=== PATIENT | female | born 1965 | race Caucasian/White ===

== ENCOUNTER 2017-03-02 19:18 | Outpatient (CLI) | END 2017-03-02 19:19 | disposition home or self-care (01) | LOC: AMBL 19:18 | PROVIDERS: ATTEND Internal Medicine Geriatric Medicine | DX: R07.9 Chest pain, unspecified (principal) ==

== ENCOUNTER 2017-03-17 03:40 | Outpatient (CLI) | END 2017-03-17 03:41 | disposition home or self-care (01) | LOC: AMBL 03:40 | PROVIDERS: ATTEND Family Medicine | DX: R07.9 Chest pain, unspecified (principal) ==